=== PATIENT | female | born 1955 | race Two or more races ===

== ENCOUNTER 2017-10-15 06:24 | Emergency (ER) | payer OTHER ==
[~2017-10-15] VITALS: Ht 162.6 cm; Wt 83.9 kg
[~2017-10-15 06:24] MED LIST: ATOR10TA52 PO; INSUPOW; LEVEMIR; LISI-646 PO; METF-371 PO; OMEP20CA74 PO; PAR20T PO
[2017-10-15 07:44] LABS: Basophils # (auto) 0.1 uL; Basophils % (auto) 0.4 % (0.0-2.0); Eosinophils # (auto) 0.1 uL; Eosinophils % (auto) 0.9 % (0.0-7.0); Hemoglobin 12.4 g/dL (12.2-16.2); Lymphocytes # (auto) 1.9 uL; Lymphocytes % (auto) 13.3 % (10.0-50.0); Mean Corpuscular Hemoglobin 30.3 pg (28.0-32.0); Mean Corpuscular Hgb Conc. 33.6 g/dL (32.0-36.0); Mean Corpuscular Volume 90.3 fL (80.0-100.0); Monocytes # (auto) 0.7 uL; Neutrophils # (auto) 11.2 uL; Neutrophils % (auto) 80.4 % (37.0-80.0); Platelet Count (auto) 231 10^3/uL (140-450); Red Blood Cells 4.09 10^6/uL (4.0-5.20); Red Cell Distribution Width 12.9 % (11.8-14.3)
[2017-10-15 07:55] LABS: INR 0.91 (0.9-1.15); Partial Thromboplastin Time 24.5 sec (22.64-33.71); Prothrombin Time 9.9 sec (9.37-12.3)
[2017-10-15 08:12] LABS: Alanine Aminotransferase 20 U/L (13-56); Albumin 3.5 g/dL (3.4-5.0); Alkaline Phosphatase 181 U/L (45-117); Anion Gap 9 (5-15); Aspartate Aminotransferase 13 U/L (15-37); BUN/Creatinine Ratio 25.2; Bilirubin, Total 0.2 mg/dL (0.2-1.0); Blood Urea Nitrogen 26 mg/dL (7-18); Calcium 8.5 mg/dL (8.5-10.1); Carbon Dioxide 23 mmol/L (21-32); Chloride 103 mmol/L (98-107); GFR African American 70 mL/min; GFR Non-African American 58 mL/min; Glucose 377 mg/dL (74-106); Potassium 4.9 mmol/L (3.5-5.1); Sodium 135 mmol/L (136-145); Total Protein 7.9 g/dL (6.4-8.2)
[2017-10-15] MEDS ORDERED: cefTRIAXone 1GM/10ml IVPUSH 10 ML IV ONE (09:45)
[2017-10-15] MEDS ORDERED: cefTRIAXone SOD 1,000 MG VL ONE ×2 (10:01→10:02)
[2017-10-15] MEDS ORDERED: LIDOCAINE 2% (LOCAL ANESTH.) PF 5ml SDV ONE (10:03)
[2017-10-15] MEDS ORDERED: cefTRIAXone SOD 1,000 MG VL IM ONE (10:15)
[2017-10-15 10:35] VITALS: BP 124/88
== END 2017-10-15 10:38 | disposition home or self-care (01) ==
LOC: ER 06:25
DX: N39.0 Urinary tract infection, site not specified (principal); R42 Dizziness and giddiness; E11.9 Type 2 diabetes mellitus without complications; K21.9 Gastro-esophageal reflux disease without esophagitis; E78.5 Hyperlipidemia, unspecified; I10 Essential (primary) hypertension; Z90.710 Acquired absence of both cervix and uterus
CPT/HCPCS: 36415; 70450; 71045; 80053; 83880; 84484; 85025; 85610; 85730; 96372; 99285; J0696

== ENCOUNTER 2022-02-03 08:36 | Inpatient (IN) | payer MEDICARE, MEDICAID ==
[~2022-02-03] VITALS: Ht 157.5 cm; Wt 73.9 kg
[~2022-02-03 08:36] MED LIST changes: -LISI-646 PO; +LISI20TA28 PO
[2022-02-03 09:48] LABS: Urine Bacteria MANY /hpf (None Seen); Urine Blood 1+ /uL (Negative); Urine Mucus FEW (None Seen); Urine Specific Gravity 1.013 (1.001-1.035); Urine WBC 357 /hpf (0 - 5); Urine WBC Clumps PRESENT /hpf (None Seen)
[2022-02-03 09:56] LABS: Basophils # (auto) 0.1 10 ^3/uL (0-0.2); Basophils % (auto) 0.7 % (0.0-2.0); Eosinophils # (auto) 0 10 ^3/uL (0-0.8); Eosinophils % (auto) 0.1 % (0.0-7.0); Hematocrit 35.7 % (36.0-46.0); Hemoglobin 11.7 g/dL (12.2-16.2); Lymphocytes # (auto) 2.4 10 ^3/uL (0.4-5.4); Lymphocytes % (auto) 16.7 % (10.0-50.0); Mean Corpuscular Hemoglobin 29.1 pg (28.0-32.0); Mean Corpuscular Hgb Conc. 32.9 g/dL (32.0-36.0); Mean Corpuscular Volume 88.5 fL (80.0-100.0); Monocytes # (auto) 0.8 10 ^3/uL (0-1.3); Monocytes % (auto) 5.7 % (0.0-12.0); Neutrophils # (auto) 11.1 10 ^3/uL (1.6-8.6); Neutrophils % (auto) 76.8 % (37.0-80.0); Red Blood Cells 4.03 10^6/uL (4.0-5.20); White Blood Cell 14.4 10^3/uL (4.4-10.8)
[2022-02-03 10:15] LABS: Albumin 3.7 g/dL (3.4-5.0); Calcium 8.8 mg/dL (8.5-10.1)
[2022-02-03 10:18] LABS: BUN/Creatinine Ratio 10.1; Bilirubin, Total 0.3 mg/dL (0.2-1.0); Total Protein 7.3 g/dL (6.4-8.2)
[2022-02-03 10:24] LABS: Potassium 6.6 mmol/L (3.5-5.1)
[2022-02-03] MEDS ORDERED: ALBUTEROL SULF 2.5 MG/0.5ML(0.5%) NEB SOLN NEB ONE (11:15)
[2022-02-03] MEDS ORDERED: InsuLIN REG 1unit/0.01ml Soln (100units/ml) IV ONE (11:15)
[2022-02-03] MEDS ORDERED: SODIUM BICARBONATE 8.4 % INJ 50ML VIAL IV ONE (11:15)
[2022-02-03] MEDS ORDERED: FUROSEMIDE 40 MG/4 ML VIAL IV ONE (11:15)
[2022-02-03] MEDS ORDERED: SODIUM CHLORIDE 0.9% 1,000 ML IV ONE (11:15)
[2022-02-03] MEDS ORDERED: CALCIUM CHL 100MG/ML 1,000 MG in D5W 5% 100 ML IV ONE (11:15)
[2022-02-03 11:55] LABS: Magnesium 1.9 mg/dL (1.6-2.6)
[2022-02-03] MEDS ORDERED: CALCIUM GLUC 1,000mg/50ml-NS 50 ML IV ONE (13:00)
[2022-02-03] MEDS ORDERED: PANTOPRAZOLE 40 MG/10 ML VIAL INJ IV ONE (14:45)
[2022-02-03] MEDS ORDERED: cefTRIAXone 1GM/50ML D5W 50 ML IV ONE (16:45)
[2022-02-03 17:13] LABS: BUN/Creatinine Ratio 10.5; Calcium 8.6 mg/dL (8.5-10.1); Potassium 5.4 mmol/L (3.5-5.1)
[2022-02-03] MEDS ORDERED: MORPHINE SULFATE INJ 2 MG/ml SYRG IV PRN (17:45)
[2022-02-03] MEDS ORDERED: SODIUM CHLORIDE 0.9% 1,000 ML IV SCH ×2 (17:45→21:45)
[2022-02-03] MEDS ORDERED: DOCUSATE SOD 100 MG CAP PO PRN (17:45)
[2022-02-03] MEDS ORDERED: DEXTROSE (50%) 50ML SYRG IV PRN (17:45)
[2022-02-03] MEDS: SODIUM CHLORIDE 0.9% 1,000 ML IV SCH (17:45)
[2022-02-03] MEDS ORDERED: INSULIN LANTUS (GLARGINE) 1 /0.01ml (100units/ml) SC ONE (17:45)
[2022-02-03] MEDS ORDERED: ONDANSETRON HCL 4 MG/2 ML VIAL IV ONE (18:15)
[2022-02-03] MEDS ORDERED: D5W/SOD CHL 0.45% 1,000 ML IV ONE (18:15)
[2022-02-03 19:21] LABS: BUN/Creatinine Ratio 10.2; Calcium 8.6 mg/dL (8.5-10.1)
[2022-02-03 19:29] LABS: Magnesium 1.6 mg/dL (1.6-2.6); Phosphorus 8.1 mg/dL (2.5-4.90)
[2022-02-03] MEDS: InsuLIN R (HUMAN) 100 UNITS in SODIUM CHL 0.9% 99 ML IV SCH (19:48)
[2022-02-03 20:05] LABS: Potassium 5.8 mmol/L (3.5-5.1)
[2022-02-03] MEDS: ACCU-CHEK COMFORT CURVE STRIP VI SCH ×2 (21:33→22:41)
[2022-02-03] MEDS: D5W/SOD CHL 0.45% 1,000 ML IV SCH (23:37)
[2022-02-04] MEDS: ACCU-CHEK COMFORT CURVE STRIP VI SCH ×15 (00:02→22:28)
[2022-02-04] MEDS: SODIUM CHLORIDE 0.9% 1,000 ML IV SCH ×6 (00:03→22:35)
[2022-02-04 00:44] LABS: BUN/Creatinine Ratio 10.1; Potassium 5.2 mmol/L (3.5-5.1)
[2022-02-04 04:15] LABS: Basophils # (auto) 0.1 10 ^3/uL (0-0.2); Basophils % (auto) 0.5 % (0.0-2.0); Eosinophils # (auto) 0 10 ^3/uL (0-0.8); Eosinophils % (auto) 0.1 % (0.0-7.0); Hematocrit 29.5 % (36.0-46.0); Hemoglobin 9.9 g/dL (12.2-16.2); Lymphocytes # (auto) 1.8 10 ^3/uL (0.4-5.4); Lymphocytes % (auto) 17.1 % (10.0-50.0); Mean Corpuscular Hemoglobin 29.8 pg (28.0-32.0); Mean Corpuscular Hgb Conc. 33.6 g/dL (32.0-36.0); Mean Corpuscular Volume 88.7 fL (80.0-100.0); Monocytes # (auto) 0.9 10 ^3/uL (0-1.3); Monocytes % (auto) 8.9 % (0.0-12.0); Neutrophils # (auto) 7.8 10 ^3/uL (1.6-8.6); Neutrophils % (auto) 73.4 % (37.0-80.0); Nucleated Red Blood Cells % 0.1 %; Red Blood Cells 3.32 10^6/uL (4.0-5.20); Red Cell Distribution Width 12.8 % (11.8-14.3); White Blood Cell 10.6 10^3/uL (4.4-10.8)
[2022-02-04 04:24] LABS: Calcium 7.9 mg/dL (8.5-10.1)
[2022-02-04 04:30] LABS: Bilirubin, Total 0.2 mg/dL (0.2-1.0)
[2022-02-04 04:57] LABS: Potassium 6.4 mmol/L (3.5-5.1)
[2022-02-04] MEDS: D5W/SOD CHL 0.45% 1,000 ML IV SCH ×3 (05:27→22:31)
[2022-02-04] MEDS ORDERED: InsuLIN REG 1unit/0.01ml Soln (100units/ml) IV ONE (07:30)
[2022-02-04] MEDS ORDERED: DEXTROSE (50%) 50ML SYRG IV ONE (07:30)
[2022-02-04] MEDS ORDERED: CALCIUM GLUC 1,000mg/50ml-NS 50 ML IV ONE (07:30)
[2022-02-04] MEDS ORDERED: ALBUTEROL SULF 2.5 MG/0.5ML(0.5%) NEB SOLN NEB ONE (07:30)
[2022-02-04] MEDS ORDERED: SODIUM BICARBONATE 8.4 % INJ 50ML VIAL IV ONE (07:30)
[2022-02-04] MEDS ORDERED: ONDANSETRON HCL 4 MG/2 ML VIAL ONE (08:35)
[2022-02-04] MEDS ORDERED: ONDANSETRON HCL 4 MG/2 ML VIAL IV ONE (08:45)
[2022-02-04] MEDS ORDERED: SODIUM CHLORIDE 0.9% 1,000 ML IV ONE (09:00)
[2022-02-04] MEDS: INSULIN LANTUS (GLARGINE) 1 /0.01ml (100units/ml) SC SCH ×3 (09:26→22:28)
[2022-02-04] MEDS: ENOXAPARIN SOD 30 MG/0.3 ML SYRINGE SC SCH (09:59)
[2022-02-04] MEDS ORDERED: FUROSEMIDE 100 MG/10ML VIAL IV ONE (10:00)
[2022-02-04] MEDS ORDERED: INSULIN LANTUS (GLARGINE) 1 /0.01ml (100units/ml) SC SCH (10:00)
[2022-02-04] MEDS: ACETAMINOPHEN 325 MG TAB PO PRN (10:07)
[2022-02-04] MEDS: cefTRIAXone 1GM/50ML D5W 50 ML IV SCH (10:39)
[2022-02-04 12:39] LABS: Anion Gap 18 (5-15); BUN/Creatinine Ratio 9.4; Calcium 7.6 mg/dL (8.5-10.1); Carbon Dioxide 13 mmol/L (21-32); Chloride 105 mmol/L (98-107); GFR African American 6 mL/min; GFR Non-African American 5 mL/min; Glucose 292 mg/dL (74-106); Potassium 4.6 mmol/L (3.5-5.1); Sodium 136 mmol/L (136-145)
[2022-02-04 12:44] LABS: Blood Urea Nitrogen 81 mg/dL (7-18)
[2022-02-04] MEDS: metroNIDAZOLE 500MG/100ML 100 ML IV SCH ×2 (14:12→22:30)
[2022-02-04] MEDS: InsuLIN R (HUMAN) 100 UNITS in SODIUM CHL 0.9% 99 ML IV SCH (17:45)
[2022-02-04 18:49] LABS: BUN/Creatinine Ratio 9.5; Calcium 7.5 mg/dL (8.5-10.1); Potassium 4.7 mmol/L (3.5-5.1)
[2022-02-04] MEDS ORDERED: DEXTROSE (50%) 50ML SYRG IV PRN (20:15)
[2022-02-04] MEDS: InsuLIN REG 1unit/0.01ml Soln (100units/ml) SC SCH (22:00)
[2022-02-05 00:10] LABS: Calcium 7.8 mg/dL (8.5-10.1); Potassium 4.4 mmol/L (3.5-5.1)
[2022-02-05 00:12] LABS: BUN/Creatinine Ratio 9.6
[2022-02-05] MEDS: ACETAMINOPHEN 325 MG TAB PO PRN ×2 (00:42→09:34)
[2022-02-05] MEDS: D5W/SOD CHL 0.45% 1,000 ML IV SCH (01:25)
[2022-02-05] MEDS: SODIUM CHLORIDE 0.9% 1,000 ML IV SCH ×3 (05:21→18:35)
[2022-02-05] MEDS: metroNIDAZOLE 500MG/100ML 100 ML IV SCH ×2 (06:51→14:24)
[2022-02-05] MEDS: ACCU-CHEK COMFORT CURVE STRIP VI SCH ×4 (07:00→21:17)
[2022-02-05] MEDS: SOD CHL 0.45% 1,000 ML IV SCH ×2 (07:15→21:18)
[2022-02-05] MEDS: InsuLIN REG 1unit/0.01ml Soln (100units/ml) SC SCH ×4 (07:58→21:15)
[2022-02-05] MEDS: INSULIN LANTUS (GLARGINE) 1 /0.01ml (100units/ml) SC SCH ×2 (09:32→21:16)
[2022-02-05] MEDS: ENOXAPARIN SOD 30 MG/0.3 ML SYRINGE SC SCH (09:33)
[2022-02-05] MEDS: cefTRIAXone 1GM/50ML D5W 50 ML IV SCH (09:34)
[2022-02-05] MEDS ORDERED: INSLISPI SC (11:31)
[2022-02-05 15:24] VITALS: BP 148/64
[2022-02-05] MEDS: HYDROcodone-ACET 5/325MG TAB PO PRN ×2 (18:07→22:43)
[2022-02-05 22:00] VITALS: BP 136/62
[2022-02-06 05:00] VITALS: BP 152/71
[2022-02-06] MEDS: InsuLIN REG 1unit/0.01ml Soln (100units/ml) SC SCH ×4 (06:09→22:08)
[2022-02-06] MEDS: ACCU-CHEK COMFORT CURVE STRIP VI SCH ×4 (06:11→22:07)
[2022-02-06] MEDS: HYDROcodone-ACET 5/325MG TAB PO PRN ×4 (06:14→20:16)
[2022-02-06 07:31] LABS: Calcium 8.1 mg/dL (8.5-10.1); Potassium 4.4 mmol/L (3.5-5.1)
[2022-02-06 07:33] LABS: BUN/Creatinine Ratio 11.5
[2022-02-06] MEDS: SODIUM CHLORIDE 0.9% 1,000 ML IV SCH ×3 (07:55→21:01)
[2022-02-06] MEDS: metroNIDAZOLE 500MG/100ML 100 ML IV SCH ×3 (08:11→22:07)
[2022-02-06 09:00] VITALS: BP 144/63
[2022-02-06] MEDS: cefTRIAXone 1GM/50ML D5W 50 ML IV SCH (09:52)
[2022-02-06] MEDS: ENOXAPARIN SOD 30 MG/0.3 ML SYRINGE SC SCH (09:53)
[2022-02-06] MEDS: INSULIN LANTUS (GLARGINE) 1 /0.01ml (100units/ml) SC SCH ×2 (10:08→22:08)
[2022-02-06] MEDS: SOD CHL 0.45% 1,000 ML IV SCH ×2 (10:09→22:09)
[2022-02-06 13:02] VITALS: BP 129/74
[2022-02-06 16:45] VITALS: BP 133/69
[2022-02-06 22:00] VITALS: BP 145/71
[2022-02-07] MEDS: SODIUM CHLORIDE 0.9% 1,000 ML IV SCH (03:05)
[2022-02-07] MEDS: HYDROcodone-ACET 5/325MG TAB PO PRN ×3 (03:06→20:59)
[2022-02-07 05:00] VITALS: BP 140/73
[2022-02-07] MEDS: metroNIDAZOLE 500MG/100ML 100 ML IV SCH ×3 (05:04→21:21)
[2022-02-07] MEDS: InsuLIN REG 1unit/0.01ml Soln (100units/ml) SC SCH ×4 (06:15→21:22)
[2022-02-07] MEDS: ACCU-CHEK COMFORT CURVE STRIP VI SCH ×4 (06:15→21:21)
[2022-02-07] MEDS: cefTRIAXone 1GM/50ML D5W 50 ML IV SCH (08:03)
[2022-02-07] MEDS: ENOXAPARIN SOD 30 MG/0.3 ML SYRINGE SC SCH (08:39)
[2022-02-07] MEDS: INSULIN LANTUS (GLARGINE) 1 /0.01ml (100units/ml) SC SCH ×2 (08:46→21:22)
[2022-02-07 09:00] VITALS: BP 152/74
[2022-02-07] MEDS ORDERED: GABAPENTIN 300 MG CAP PO SCH (10:00)
[2022-02-07 11:25] LABS: BUN/Creatinine Ratio 14.3; Calcium 7.6 mg/dL (8.5-10.1); Potassium 4.6 mmol/L (3.5-5.1)
[2022-02-07 12:58] VITALS: BP 146/67
[2022-02-07] MEDS ORDERED: SODIUM CHLORIDE 0.9% 3,000 ML IV ONE (13:30)
[2022-02-07 17:00] VITALS: BP 149/70
[2022-02-07 17:40] LABS: BUN/Creatinine Ratio 15.2; Calcium 7.4 mg/dL (8.5-10.1); Potassium 3.8 mmol/L (3.5-5.1)
[2022-02-07 22:00] VITALS: BP 129/54
[2022-02-08] MEDS: HYDROcodone-ACET 5/325MG TAB PO PRN ×2 (04:21→08:27)
[2022-02-08 05:00] VITALS: BP 166/57
[2022-02-08] MEDS: metroNIDAZOLE 500MG/100ML 100 ML IV SCH (05:31)
[2022-02-08 05:47] VITALS: BP 139/70
[2022-02-08] MEDS: ACCU-CHEK COMFORT CURVE STRIP VI SCH (06:02)
[2022-02-08] MEDS: InsuLIN REG 1unit/0.01ml Soln (100units/ml) SC SCH (06:02)
[2022-02-08] MEDS: ENOXAPARIN SOD 30 MG/0.3 ML SYRINGE SC SCH (08:27)
[2022-02-08] MEDS: cefTRIAXone 1GM/50ML D5W 50 ML IV SCH (08:28)
[2022-02-08 09:00] VITALS: BP 132/70
[2022-02-08] MEDS ORDERED: GABA300C10 PO (09:00)
[2022-02-08] MEDS ORDERED: GABAPENTIN 300 MG CAP PO SCH (10:00)
[2022-02-08 10:17] VITALS: BP 132/70
== END 2022-02-08 12:50 | disposition home or self-care (01) | DRG 637 ==
LOC: ER 08:36 → TELE 17:43 → CENTRAL 02-05 15:21
PROVIDERS: ADMIT Internal Medicine; ATTEND Family Medicine
DX: E11.10 Type 2 diabetes mellitus with ketoacidosis without coma (principal); G93.41 Metabolic encephalopathy; K85.90 Acute pancreatitis without necrosis or infection, unspecified; E87.1 Hypo-osmolality and hyponatremia; N17.9 Acute kidney failure, unspecified; R57.9 Shock, unspecified; N39.0 Urinary tract infection, site not specified; Z20.822 Contact with and (suspected) exposure to COVID-19; E11.22 Type 2 diabetes mellitus with diabetic chronic kidney disease; E78.5 Hyperlipidemia, unspecified; E87.5 Hyperkalemia; I51.4 Myocarditis, unspecified; N18.2 Chronic kidney disease, stage 2 (mild); E11.40 Type 2 diabetes mellitus with diabetic neuropathy, unspecified; E86.0 Dehydration; I12.9 Hypertensive chronic kidney disease with stage 1 through stage 4 chronic kidney disease, or unspecified chronic kidney disease; I48.91 Unspecified atrial fibrillation; Z79.4 Long term (current) use of insulin; Z79.899 Other long term (current) drug therapy; Z82.0 Family history of epilepsy and other diseases of the nervous system; Z82.49 Family history of ischemic heart disease and other diseases of the circulatory system; Z83.3 Family history of diabetes mellitus; Z90.710 Acquired absence of both cervix and uterus
CPT/HCPCS: 36415; 71046; 74176; 76705; 80048; 80053; 81001; 82010; 82962; 83036; 83690; 83735; 84100; 84484; 85025; 87040; 87086; 93005; 94640; 96365; 96375; 99291; C9113; G0378; J0696; J1815; J2405; J3490; J7060

== ENCOUNTER 2022-12-03 18:41 | Emergency (ER) | payer OTHER ==
[~2022-12-03] VITALS: Ht 160 cm; Wt 81.9 kg
[~2022-12-03 18:41] MED LIST changes: +GABA-1250 PO; +INSLISPI SC; -LISI20TA28 PO; +LISI20TA56 PO
[2022-12-03 20:47] LABS: Albumin 3.3 g/dL (3.4-5.0); Calcium 8.6 mg/dL (8.5-10.1)
[2022-12-03 20:48] LABS: Basophils # (auto) 0.2 10 ^3/uL (0-0.2); Basophils % (auto) 2.2 % (0.0-2.0); Eosinophils # (auto) 0.4 10 ^3/uL (0-0.8); Eosinophils % (auto) 4.9 % (0.0-7.0); Hematocrit 34.9 % (36.0-46.0); Hemoglobin 11.4 g/dL (12.2-16.2); Lymphocytes # (auto) 1.8 10 ^3/uL (0.4-5.4); Lymphocytes % (auto) 22.7 % (10.0-50.0); Mean Corpuscular Hemoglobin 29.4 pg (28.0-32.0); Mean Corpuscular Hgb Conc. 32.7 g/dL (32.0-36.0); Monocytes # (auto) 0.4 10 ^3/uL (0-1.3); Monocytes % (auto) 4.8 % (0.0-12.0); Neutrophils # (auto) 5.2 10 ^3/uL (1.6-8.6); Neutrophils % (auto) 65.4 % (37.0-80.0); Red Blood Cells 3.88 10^6/uL (4.0-5.20); Red Cell Distribution Width 12.8 % (11.8-14.3)
[2022-12-03 20:49] LABS: BUN/Creatinine Ratio 20.8 (10.0-20.0); Bilirubin, Total 0.1 mg/dL (0.2-1.0); Total Protein 7.1 g/dL (6.4-8.2)
[2022-12-03 20:54] LABS: Urine Bacteria MANY /hpf (None Seen); Urine Blood Negative /uL (Negative); Urine Budding Yeast FEW /hpf (None Seen); Urine Specific Gravity 1.017 (1.001-1.035); Urine WBC 84 /hpf (0 - 5); Urine WBC Clumps PRESENT /hpf (None Seen)
[2022-12-03] MEDS ORDERED: NITR-87 PO (20:56)
[2022-12-03 21:48] VITALS: BP 105/51
== END 2022-12-03 21:54 | disposition home or self-care (01) ==
LOC: ER 18:41
DX: R51.9 Headache, unspecified (principal); N39.0 Urinary tract infection, site not specified; R42 Dizziness and giddiness; E11.9 Type 2 diabetes mellitus without complications; K21.9 Gastro-esophageal reflux disease without esophagitis; E78.5 Hyperlipidemia, unspecified; I10 Essential (primary) hypertension; Z90.710 Acquired absence of both cervix and uterus
CPT/HCPCS: 36415; 70450; 80053; 81001; 82962; 85025; 93005

== ENCOUNTER 2023-05-24 17:53 | Emergency (ER) | payer OTHER ==
[~2023-05-24] VITALS: Ht 160 cm; Wt 81.7 kg
[~2023-05-24 17:53] MED LIST changes: +NITR-87 PO
[2023-05-24 18:50] VITALS: BP 143/55; PULSE 68; RESP 16; TEMP 98.3; O2SAT 96
[2023-05-24 19:01] LABS: Urine Bacteria MANY /hpf (None Seen); Urine Blood Negative /uL (Negative); Urine Clarity Clear (Clear); Urine Protein, UAD TRACE (Negative); Urine Specific Gravity 1.013 (1.001-1.035); Urine Urobilinogen Normal (Negative); Urine WBC 23 /hpf (0 - 5); Urine WBC Clumps PRESENT /hpf (None Seen); Urine pH 5.5 (5.0-8.0)
[2023-05-24 19:03] LABS: Urine Color STRAW (Yellow)
[2023-05-24 19:42] LABS: Basophils # (auto) 0.1 10 ^3/uL (0-0.2); Eosinophils # (auto) 0.1 10 ^3/uL (0-0.8); Eosinophils % (auto) 1.7 % (0.0-7.0); Hematocrit 35.2 % (36.0-46.0); Hemoglobin 11.8 g/dL (12.2-16.2); Lymphocytes # (auto) 3.2 10 ^3/uL (0.4-5.4); Lymphocytes % (auto) 40.9 % (10.0-50.0); Mean Corpuscular Hemoglobin 29.5 pg (28.0-32.0); Mean Corpuscular Hgb Conc. 33.5 g/dL (32.0-36.0); Mean Corpuscular Volume 88.2 fL (80.0-100.0); Monocytes # (auto) 0.7 10 ^3/uL (0-1.3); Monocytes % (auto) 8.5 % (0.0-12.0); Neutrophils # (auto) 3.8 10 ^3/uL (1.6-8.6); Neutrophils % (auto) 47.9 % (37.0-80.0); Red Blood Cells 3.99 10^6/uL (4.0-5.20); Red Cell Distribution Width 13.1 % (11.8-14.3); White Blood Cell 7.8 10^3/uL (4.4-10.8)
[2023-05-24 20:13] LABS: Alanine Aminotransferase 16 U/L (7-40); Albumin 4.2 g/dL (3.2-4.8); Alkaline Phosphatase 111 U/L (46-116); Anion Gap 7 (5-15); Aspartate Aminotransferase 13 U/L (13-40); BUN/Creatinine Ratio 24.3 (10.0-20.0); Blood Urea Nitrogen 27 mg/dL (9-23); Calcium 8.8 mg/dL (8.7-10.4); Carbon Dioxide 24 mmol/L (20-30); Chloride 106 mmol/L (98-107); Glucose 196 mg/dL (74-106); Potassium 5.2 mmol/L (3.5-5.1); Sodium 137 mmol/L (136-145)
[2023-05-24 20:14] LABS: Bilirubin, Total 0.3 mg/dL (0.2-1.0); Total Protein 6.9 g/dL (5.7-8.2)
[2023-05-24] MEDS ORDERED: PHENAZOPYRIDINE HCL 100 MG TAB PO ONE (20:30)
[2023-05-24] MEDS ORDERED: cefTRIAXone SOD 1,000 MG VL IM ONE (20:30)
[2023-05-24] MEDS ORDERED: PHEN-1045 PO (20:30)
[2023-05-24] MEDS ORDERED: CEPH500C PO (20:30)
[2023-05-24] MEDS ORDERED: BACL5TAB2 PO (20:31)
[2023-05-24] MEDS ORDERED: NAP500T PO (20:31)
== END 2023-05-24 21:43 | disposition home or self-care (01) ==
LOC: ER 17:53
DX: N39.0 Urinary tract infection, site not specified (principal); M62.830 Muscle spasm of back; E11.9 Type 2 diabetes mellitus without complications; I10 Essential (primary) hypertension; K21.9 Gastro-esophageal reflux disease without esophagitis; E78.5 Hyperlipidemia, unspecified; Z90.710 Acquired absence of both cervix and uterus; Z87.440 Personal history of urinary (tract) infections
CPT/HCPCS: 36415; 76775; 80053; 81001; 85025; 96372; 99285; J0696

== ENCOUNTER 2023-10-15 12:10 | Emergency (ER) | payer OTHER ==
[~2023-10-15 12:10] MED LIST changes: +BACL5TAB2 PO; +CEPH500C PO; +NAP500T PO; +PHEN-1045 PO
[2023-10-15 15:02] VITALS: BP 138/56; PULSE 62; RESP 18; TEMP 98.4; O2SAT 99
[2023-10-15] MEDS ORDERED: DICL1GEL59 EX (15:34)
[2023-10-15] MEDS ORDERED: MELO7.5T7 PO (15:34)
== END 2023-10-15 16:23 | disposition home or self-care (01) ==
LOC: ER 12:25
DX: S93.692A Other sprain of left foot, initial encounter (principal); I10 Essential (primary) hypertension; E11.9 Type 2 diabetes mellitus without complications; K21.9 Gastro-esophageal reflux disease without esophagitis; E78.5 Hyperlipidemia, unspecified; Z98.890 Other specified postprocedural states; Z79.899 Other long term (current) drug therapy; W22.8XXA Striking against or struck by other objects, initial encounter; Y93.89 Activity, other specified; Y92.89 Other specified places as the place of occurrence of the external cause; Y99.8 Other external cause status
CPT/HCPCS: 73630

== ENCOUNTER 2024-02-13 20:27 | Inpatient (IN) | payer OTHER ==
[~2024-02-13] VITALS: Ht 152.4 cm; Wt 71.6 kg
[~2024-02-13 20:27] MED LIST changes: +DICL1GEL59 EX; +MELO7.5T7 PO
[2024-02-13 21:46] LABS: Basophils # (auto) 0.1 10 ^3/uL (0-0.2); Basophils % (auto) 0.6 % (0.0-2.0); Eosinophils # (auto) 0.2 10 ^3/uL (0-0.8); Eosinophils % (auto) 2.6 % (0.0-7.0); Hematocrit 31.3 % (36.0-46.0); Hemoglobin 10.6 g/dL (12.2-16.2); Lymphocytes # (auto) 2.6 10 ^3/uL (0.4-5.4); Lymphocytes % (auto) 29.7 % (10.0-50.0); Mean Corpuscular Hemoglobin 30.6 pg (28.0-32.0); Mean Corpuscular Hgb Conc. 33.7 g/dL (32.0-36.0); Mean Corpuscular Volume 90.9 fL (80.0-100.0); Monocytes # (auto) 0.7 10 ^3/uL (0-1.3); Neutrophils # (auto) 5.1 10 ^3/uL (1.6-8.6); Neutrophils % (auto) 59.1 % (37.0-80.0); Platelet Count (auto) 187 10^3/uL (140-450); Red Blood Cells 3.45 10^6/uL (4.0-5.20); Red Cell Distribution Width 13.4 % (11.8-14.3); White Blood Cell 8.7 10^3/uL (4.4-10.8)
[2024-02-13 21:57] LABS: Alanine Aminotransferase 11 U/L (7-40); Albumin 4.2 g/dL (3.2-4.8); Alkaline Phosphatase 79 U/L (46-116); Anion Gap 9 (5-15); Aspartate Aminotransferase 12 U/L (13-40); BUN/Creatinine Ratio 19.5 (10.0-20.0); Bilirubin, Total 0.2 mg/dL (0.2-1.0); Blood Urea Nitrogen 36 mg/dL (9-23); Calcium 9.1 mg/dL (8.7-10.4); Carbon Dioxide 22 mmol/L (20-30); Chloride 105 mmol/L (98-107); Glucose 134 mg/dL (74-106); Magnesium 1.5 mg/dL (1.6-2.6); Potassium 5.5 mmol/L (3.5-5.1); Sodium 136 mmol/L (136-145); Total Protein 7.2 g/dL (5.7-8.2)
[2024-02-13 22:48] VITALS: PULSE 56; RESP 16; O2SAT 100
[2024-02-13] MEDS: SODIUM BICARB 8.4% 50Meq/50ml SYR Vial IV ONE (23:48)
[2024-02-13] MEDS: CALCIUM GLUC 1,000mg/50ml-NS 50 ML IV ONE (23:55)
[2024-02-14] MEDS: NITROGLYCERIN 0.4 MG SL TAB SL ONE (00:04)
[2024-02-14] MEDS ORDERED: MORPHINE SULFATE INJ 2 MG/ml SYRG IV PRN ×3 (01:00→04:00)
[2024-02-14] MEDS ORDERED: ONDANSETRON ODT 4 MG TAB PO PRN (01:00)
[2024-02-14 01:43] LABS: Chloride 107 mmol/L (98-107); Potassium 5.1 mmol/L (3.5-5.1); Sodium 138 mmol/L (136-145)
[2024-02-14 01:44] LABS: Anion Gap 9 (5-15); Calcium 9.5 mg/dL (8.7-10.4); Carbon Dioxide 22 mmol/L (20-30)
[2024-02-14] MEDS: MAGNESIUM SULFATE 1GM/100ML 100 ML IV SCH (01:46)
[2024-02-14] MEDS: ASPirin-EC 81 mg tab PO SCH (01:46)
[2024-02-14 01:49] LABS: BUN/Creatinine Ratio 22.5 (10.0-20.0); Blood Urea Nitrogen 39 mg/dL (9-23); Glucose 127 mg/dL (74-106)
[2024-02-14 02:00] LABS: Erythrocyte Sedimentation Rate 20 mm/hr (0-20)
[2024-02-14] MEDS: SODIUM CHLORIDE 0.9% 1,000 ML IV ONE ×2 (02:04→12:34)
[2024-02-14 02:24] LABS: Urine Bacteria FEW /hpf (None Seen); Urine Blood Negative /uL (Negative); Urine Clarity Turbid (Clear); Urine Color Colorless (Yellow); Urine Protein, UAD Negative (Negative); Urine Specific Gravity 1.009 (1.001-1.035); Urine Urobilinogen Normal (Negative); Urine WBC 158 /hpf (0 - 5); Urine pH 7.5 (5.0-9.0)
[2024-02-14] MEDS: cefTRIAXone 1GM/50ML D5W 50 ML IV ONE (03:44)
[2024-02-14] MEDS ORDERED: ONDANSETRON HCL 4 MG/2 ML VIAL IV PRN (04:00)
[2024-02-14] MEDS ORDERED: NITROGLYCERIN 0.4 MG SL TAB SL PRN (04:00)
[2024-02-14] MEDS ORDERED: DEXTROSE (50%) 50ML SYRG IV PRN (04:00)
[2024-02-14] MEDS: ATROPINE SULF 1 MG/10ml SYR IV PRN (04:29)
[2024-02-14 06:29] LABS: Anion Gap 8 (5-15); Calcium 8.9 mg/dL (8.7-10.4); Carbon Dioxide 22 mmol/L (20-30); Chloride 108 mmol/L (98-107); Potassium 4.7 mmol/L (3.5-5.1); Sodium 138 mmol/L (136-145)
[2024-02-14] MEDS: ACCU-CHEK COMFORT CURVE STRIP VI SCH (06:29)
[2024-02-14] MEDS: PANTOPRAZOLE 40 MG TAB PO SCH (06:30)
[2024-02-14] MEDS: InsuLIN REG 1unit/0.01ml Soln (100units/ml) SC SCH (06:31)
[2024-02-14 06:34] LABS: Glucose 161 mg/dL (74-106)
[2024-02-14 06:35] LABS: BUN/Creatinine Ratio 22.9 (10.0-20.0); Blood Urea Nitrogen 36 mg/dL (9-23)
[2024-02-14 06:47] LABS: Basophils # (auto) 0 10 ^3/uL (0-0.2); Basophils % (auto) 0.5 % (0.0-2.0); Eosinophils # (auto) 0.2 10 ^3/uL (0-0.8); Eosinophils % (auto) 2.4 % (0.0-7.0); Hematocrit 29.5 % (36.0-46.0); Hemoglobin 10.2 g/dL (12.2-16.2); Lymphocytes # (auto) 2.4 10 ^3/uL (0.4-5.4); Lymphocytes % (auto) 32.7 % (10.0-50.0); Mean Corpuscular Hemoglobin 30.7 pg (28.0-32.0); Mean Corpuscular Hgb Conc. 34.5 g/dL (32.0-36.0); Monocytes # (auto) 0.6 10 ^3/uL (0-1.3); Monocytes % (auto) 7.8 % (0.0-12.0); Neutrophils # (auto) 4.1 10 ^3/uL (1.6-8.6); Neutrophils % (auto) 56.6 % (37.0-80.0); Platelet Count (auto) 166 10^3/uL (140-450); Red Blood Cells 3.31 10^6/uL (4.0-5.20); Red Cell Distribution Width 13.5 % (11.8-14.3); White Blood Cell 7.3 10^3/uL (4.4-10.8)
[2024-02-14 07:50] VITALS: PULSE 55; RESP 18; O2SAT 99
[2024-02-14] MEDS: GLUCAGON EMERG KIT 1mg/1ml IV ONE (09:05)
[2024-02-14] MEDS: ENOXAPARIN SOD 40 MG/0.4 ML SYRINGE SC SCH (10:06)
[2024-02-14] MEDS: SODIUM CHLORIDE 0.9% 1,000 ML IV SCH (15:00)
[2024-02-14] MEDS: PIPERACILLIN-TAZOB 3.375GM 100 ML IV ONE (16:11)
[2024-02-14] MEDS: PIPERACILLIN-TAZOB 3.375GM 100 ML IV SCH (17:00)
[2024-02-14 20:00] VITALS: PULSE 51; RESP 19; O2SAT 99
[2024-02-14] MEDS: ATROPINE SULF 1 MG/10ml SYR ONE (21:03)
[2024-02-14] MEDS: ATORVASTATIN 20 MG TAB PO SCH (21:59)
[2024-02-14 23:15] VITALS: BP 156/53; PULSE 68; RESP 15; O2SAT 97
[2024-02-15] VITALS (28 sets, daily range): BP systolic 97–174; BP diastolic 47–104; PULSE 63–105; RESP 12–31; TEMP 98.4–99.4; O2SAT 89–99
[2024-02-15] MEDS ORDERED: cefTRIAXone 1GM/50ML D5W 50 ML IV SCH (03:00)
[2024-02-15 05:37] LABS: Basophils # (auto) 0 10 ^3/uL (0-0.2); Basophils % (auto) 0.5 % (0.0-2.0); Eosinophils # (auto) 0 10 ^3/uL (0-0.8); Eosinophils % (auto) 0.4 % (0.0-7.0); Hematocrit 30.1 % (36.0-46.0); Hemoglobin 10.1 g/dL (12.2-16.2); Lymphocytes # (auto) 2.2 10 ^3/uL (0.4-5.4); Lymphocytes % (auto) 24.1 % (10.0-50.0); Mean Corpuscular Hemoglobin 30.1 pg (28.0-32.0); Mean Corpuscular Hgb Conc. 33.7 g/dL (32.0-36.0); Mean Corpuscular Volume 89.2 fL (80.0-100.0); Monocytes # (auto) 0.7 10 ^3/uL (0-1.3); Monocytes % (auto) 7.7 % (0.0-12.0); Neutrophils % (auto) 67.3 % (37.0-80.0); Nucleated Red Blood Cells % 0.1 %; Platelet Count (auto) 180 10^3/uL (140-450); Red Blood Cells 3.37 10^6/uL (4.0-5.20); Red Cell Distribution Width 13.3 % (11.8-14.3)
[2024-02-15 05:59] LABS: Anion Gap 7 (5-15); Carbon Dioxide 20 mmol/L (20-30); Chloride 112 mmol/L (98-107); Potassium 4.4 mmol/L (3.5-5.1); Sodium 139 mmol/L (136-145)
[2024-02-15 06:00] LABS: Calcium 8.9 mg/dL (8.7-10.4)
[2024-02-15 06:04] LABS: Glucose 211 mg/dL (74-106)
[2024-02-15 06:05] LABS: BUN/Creatinine Ratio 19.8 (10.0-20.0); Blood Urea Nitrogen 26 mg/dL (9-23); Magnesium 1.7 mg/dL (1.6-2.6)
[2024-02-15] MEDS ORDERED: FURO1TAB31 PO (07:04)
[2024-02-15] MEDS ORDERED: CARV-214 OR (07:04)
[2024-02-15] MEDS ORDERED: APIX5TAB PO (07:04)
[2024-02-15] MEDS ORDERED: INSLANTI SC (07:04)
[2024-02-15] MEDS ORDERED: LEVO500T91 PO (07:31)
[2024-02-15] MEDS: FUROSEMIDE 40 MG/4 ML VIAL IV ONE (09:59)
[2024-02-15] MEDS: hydrALAZINE HCL 25 MG TAB PO SCH (09:59)
[2024-02-15] MEDS: ENOXAPARIN SOD 80 MG/0.8ML SYRINGE SC SCH (10:00)
[2024-02-15] MEDS: MAGNESIUM SULFATE 1GM/100ML 100 ML IV SCH (17:05)
[2024-02-15] MEDS: FUROSEMIDE 20 MG/2 ML VIAL IV ONE (17:06)
[2024-02-16] VITALS (15 sets, daily range): BP systolic 119–163; BP diastolic 60–117; PULSE 70–94; RESP 13–30; TEMP 98.3–99.4; O2SAT 94–99
[2024-02-16] MEDS: hydrALAZINE HCL 20 MG/ML VL IV PRN (00:50)
[2024-02-16 05:12] LABS: Basophils # (auto) 0.1 10 ^3/uL (0-0.2); Basophils % (auto) 0.6 % (0.0-2.0); Eosinophils # (auto) 0.1 10 ^3/uL (0-0.8); Hematocrit 32.9 % (36.0-46.0); Hemoglobin 11.5 g/dL (12.2-16.2); Lymphocytes # (auto) 2.6 10 ^3/uL (0.4-5.4); Lymphocytes % (auto) 23.5 % (10.0-50.0); Mean Corpuscular Hemoglobin 30.8 pg (28.0-32.0); Mean Corpuscular Hgb Conc. 34.9 g/dL (32.0-36.0); Mean Corpuscular Volume 88.2 fL (80.0-100.0); Monocytes # (auto) 0.9 10 ^3/uL (0-1.3); Neutrophils # (auto) 7.5 10 ^3/uL (1.6-8.6); Neutrophils % (auto) 66.9 % (37.0-80.0); Platelet Count (auto) 195 10^3/uL (140-450); Red Blood Cells 3.73 10^6/uL (4.0-5.20); Red Cell Distribution Width 13.2 % (11.8-14.3); White Blood Cell 11.2 10^3/uL (4.4-10.8)
[2024-02-16 05:22] LABS: Chloride 105 mmol/L (98-107); Potassium 3.8 mmol/L (3.5-5.1); Sodium 138 mmol/L (136-145)
[2024-02-16 05:23] LABS: Anion Gap 14 (5-15); Calcium 9.6 mg/dL (8.7-10.4); Carbon Dioxide 19 mmol/L (20-30)
[2024-02-16 05:28] LABS: BUN/Creatinine Ratio 14.2 (10.0-20.0); Blood Urea Nitrogen 19 mg/dL (9-23); Glucose 196 mg/dL (74-106)
[2024-02-16] MEDS: FUROSEMIDE 20 MG/2 ML VIAL IV SCH (07:45)
[2024-02-16] MEDS ORDERED: APIX5TAB PO (07:54)
[2024-02-16] MEDS ORDERED: FURO1TAB31 PO (07:54)
[2024-02-16] MEDS ORDERED: FUROSEMIDE 20 MG/2 ML VIAL IV SCH (10:00)
[2024-02-17] MEDS ORDERED: FUROSEMIDE 40 MG/4 ML VIAL IV SCH (10:00)
== END 2024-02-16 14:00 | disposition home health service (06) | DRG 308 ==
LOC: ER 20:27 → TELE 02-14 08:43 → DOU IN ICU 02-14 17:16 → UNDODISIN 02-14 17:59 → TELE 02-14 19:16 → DOU IN ICU 02-14 23:15
PROVIDERS: ADMIT Hospitalist; ATTEND Hospitalist
DX: R00.1 Bradycardia, unspecified (principal); N17.0 Acute kidney failure with tubular necrosis; N39.0 Urinary tract infection, site not specified; T44.7X5A Adverse effect of beta-adrenoreceptor antagonists, initial encounter; E87.5 Hyperkalemia; I48.91 Unspecified atrial fibrillation; R42 Dizziness and giddiness; E11.9 Type 2 diabetes mellitus without complications; K21.9 Gastro-esophageal reflux disease without esophagitis; E78.5 Hyperlipidemia, unspecified; I27.20 Pulmonary hypertension, unspecified; Z90.710 Acquired absence of both cervix and uterus; Z86.718 Personal history of other venous thrombosis and embolism; Z90.49 Acquired absence of other specified parts of digestive tract; Z83.3 Family history of diabetes mellitus; Z82.49 Family history of ischemic heart disease and other diseases of the circulatory system; Z82.0 Family history of epilepsy and other diseases of the nervous system; Z91.018 Allergy to other foods; Y92.89 Other specified places as the place of occurrence of the external cause
CPT/HCPCS: 36415; 71045; 80048; 80053; 81001; 82962; 83735; 83880; 84484; 85025; 85379; 85652; 87040; 87081; 87086; 93005; 93306; 99291; G0378; J1815; J2543